=== PATIENT | female | born 1960 | race Caucasian/White ===

== ENCOUNTER 2017-08-27 17:26 | Emergency (ER) | payer OTHER ==
[~2017-08-27] VITALS: Ht 157.5 cm; Wt 117.9 kg
== END 2017-08-27 23:52 | disposition home or self-care (01) ==
LOC: ER 17:26
DX: L50.9 Urticaria, unspecified (principal)

== ENCOUNTER 2017-09-26 11:42 | Outpatient (CLI) | payer OTHER | END 2017-09-26 11:51 | disposition home or self-care (01) | LOC: RAD 501 11:42 | DX: M47.817 Spondylosis without myelopathy or radiculopathy, lumbosacral region (principal); M17.0 Bilateral primary osteoarthritis of knee ==

== ENCOUNTER 2018-04-16 13:22 | Emergency (ER) | payer OTHER ==
[~2018-04-16] VITALS: Ht 157.5 cm; Wt 119.7 kg
== END 2018-04-16 16:58 | disposition home or self-care (01) ==
LOC: ER 13:22
DX: M54.89 Other dorsalgia (principal); M41.85 Other forms of scoliosis, thoracolumbar region

== ENCOUNTER 2020-02-09 22:37 | Emergency (ER) | payer OTHER ==
[~2020-02-09] VITALS: Ht 157.5 cm; Wt 113.4 kg
[2020-02-10] MEDS ORDERED: MECLIZINE HCL25 MG PO (02:21)
[2020-02-10] MEDS ORDERED: CEPHALEXIN500 M1 PO (02:21)
== END 2020-02-10 02:40 | disposition home or self-care (01) ==
LOC: ER 22:37
DX: R20.0 Anesthesia of skin (principal); R42 Dizziness and giddiness; N39.0 Urinary tract infection, site not specified; R31.0 Gross hematuria

== ENCOUNTER 2020-04-22 12:37 | Emergency (ER) | payer OTHER ==
[~2020-04-22] VITALS: Ht 157.5 cm; Wt 104.3 kg
[~2020-04-22 12:37] MED LIST: CEPHALEXIN500 M1 PO; MECLIZINE HCL25 MG PO
[2020-04-22] MEDS ORDERED: LEVOTHYROXINE25 MCG (12:58)
[2020-04-22] MEDS ORDERED: ZYRTEC10 M3 (12:59)
== END 2020-04-22 19:02 | disposition home or self-care (01) ==
LOC: ER 12:37 → CPU-OBS 12:37 → ER 19:02
DX: R07.89 Other chest pain (principal); Z20.828 Contact with and (suspected) exposure to other viral communicable diseases
CPT/HCPCS: G0378; G0379; 93005

== ENCOUNTER 2022-05-11 20:45 | Emergency (ER) | payer OTHER ==
[~2022-05-11] VITALS: Ht 152.4 cm; Wt 97.5 kg
[~2022-05-11 20:45] MED LIST changes: +LEVOTHYROXINE25 MCG; +ZYRTEC10 M3
== END 2022-05-11 21:24 | disposition home or self-care (01) ==
LOC: ER 20:45
DX: M79.602 Pain in left arm (principal); M79.605 Pain in left leg

== ENCOUNTER → 2023-08-18 | Emergency (ER) | payer OTHER ==
[~2023-08-18] VITALS: Ht 157.5 cm; Wt 122.5 kg
[~2023-08-18] MED LIST changes: +LOSARTAN POTAS100 MG PO; +SYNTHROID50 MCG PO
== END | disposition left against medical advice (07) ==
LOC: ER 16:39
DX: Z53.21 Procedure and treatment not carried out due to patient leaving prior to being seen by health care provider (principal)

== ENCOUNTER 2023-08-19 11:04 | Emergency (ER) | payer OTHER ==
[~2023-08-19] VITALS: Ht 157.5 cm; Wt 122.5 kg
[~2023-08-19 11:04] MED LIST changes: -SYNTHROID50 MCG PO
[2023-08-19] MEDS ORDERED: SYNTHROID50 MCG PO (12:02)
== END 2023-08-19 15:52 | disposition home or self-care (01) ==
LOC: ER 11:05
DX: M72.2 Plantar fascial fibromatosis (principal)

== ENCOUNTER 2024-09-04 18:57 | Emergency (ER) | payer OTHER ==
[~2024-09-04] VITALS: Ht 157.5 cm; Wt 124.3 kg
[~2024-09-04 18:57] MED LIST changes: +SYNTHROID50 MCG PO
[2024-09-04] MEDS ORDERED: NIFEDIPINE 10 MG CAPSULE PO ONE ×2 (22:33→22:45)
== END 2024-09-04 22:37 | disposition home or self-care (01) ==
LOC: ER 19:00
DX: E03.9 Hypothyroidism, unspecified (principal); I10 Essential (primary) hypertension; E66.01 Morbid (severe) obesity due to excess calories

== ENCOUNTER 2025-06-13 09:49 | Emergency (ER) | payer OTHER ==
[~2025-06-13] VITALS: Ht 154.9 cm; Wt 124.3 kg
[2025-06-13] MEDS ORDERED: SODIUM CHLORIDE 0.45 % 500 ML IV STA (10:42)
[2025-06-13] MEDS ORDERED: MORPHINE SULFATE 2 MG/ML SYRINGE IV STA (10:42)
[2025-06-13] MEDS ORDERED: ONDANSETRON HCL 2 MG/ML VIAL IV STA (10:43)
[2025-06-13] MEDS ORDERED: FAMOTIDINE/PF 20 MG/2 ML VIAL IV PUSH STA (10:44)
[2025-06-13] MEDS ORDERED: ONDANSETRON HCL 2 MG/ML VIAL ONE (10:49)
[2025-06-13] MEDS ORDERED: FAMOTIDINE/PF 20 MG/2 ML VIAL ONE (10:49)
[2025-06-13 11:22] LABS: BASO % 0.3 % (0.1-1.2); EOS # 0.01 (0.04-0.54); EOS % 0.2 % (0.7-7.0); LYMPH # 0.37 (1.18-3.74); LYMPH % 6.4 % (19.3-53.1); MEAN PLATELET VOLUME 9.50 fl (9.4-12.4); MONO # 0.03 (0.24-0.82); MONO % 0.5 % (4.7-12.5); NEUT # 5.20 (1.56-6.13); NEUT % 90.3 % (34.0-71.1); RED CELL DISTRIBUTION WIDTH 12.6 % (11.6-14.4)
[2025-06-13 11:59] LABS: BAND MAN 5.0 %; LYMPHOCYTE MAN 13.0 %; MONOCYTE MAN 1.0 %; NEUTROPHILS MAN 81.0 %
[2025-06-13 12:52] LABS: URINE APPEARANCE Clear; URINE BILIRRUBIN Negative (NEGATIVE); URINE BLOOD Large; URINE COLOR Yellow; URINE GLUCOSE Negative (NEGATIVE); URINE KETONE Negative (NEGATIVE); URINE LEUKOCYTE Small; URINE NITRATE Negative; URINE UROBILINOGEN 0.2 E.U./dl
[2025-06-13 13:01] LABS: URINE EPITHELIAL CELLS 15.5 uL (0.0-38.8); URINE RBC 234.5 uL (0.0-20.8); URINE WBC 84.7 uL (0.0-23.2)
[2025-06-13 13:01] LABS: ALT/SGPT 23.0 U/L (12-78); AST/SGOT 20.0 U/L (15-37); BILIRUBIN TOTAL 1.31 mg/dL (0.3-1.2); BUN CREA RATIO 27.0 (7.0-25.0); CREATININE SERUM 0.89 mg/dL (0.55-1.02); GFR 64.06; GLOBULINA 4.1 G/DL (2.4-3.5); GLUCOSE FASTING 116.0 mg/dL (65-100); OSMOLALITY SERUM 288.0 MOSM/KG (275-295)
[2025-06-13 13:42] LABS: URINE CAST 0.14 uL (0.0-1.40); URINE PROTEIN 100 (NEGATIVE)
[2025-06-13] MEDS ORDERED: CEFTRIAXONE SODIUM 1,000 MG VIAL IV STA (13:48)
[2025-06-13] MEDS ORDERED: CEFTRIAXONE SODIUM 1,000 MG VIAL ONE (15:19)
[2025-06-13] MEDS ORDERED: TRAMADOL HCL 50 MG TABLET PO STA (15:23)
== END 2025-06-13 15:59 | disposition home or self-care (01) ==
LOC: ER 09:49
PROVIDERS: General Practice; Internal Medicine
DX: M54.9 Dorsalgia, unspecified (principal); Z87.448 Personal history of other diseases of urinary system; N20.0 Calculus of kidney; N20.1 Calculus of ureter